=== PATIENT | male | born 1975 | race Caucasian/White ===

== ENCOUNTER 2022-12-14 07:34 | Day surgery (SDC) | payer MEDICAID ==
[~2022-12-14] VITALS: Ht 170.2 cm; Wt 95.5 kg
[2022-12-14] MEDS ORDERED: CETI10TA14 PO (07:51)
[2022-12-14] MEDS ORDERED: PREG150C46 PO (07:51)
[2022-12-14] MEDS ORDERED: CHOL500049 PO (07:51)
[2022-12-14] MEDS ORDERED: LIDO35.4 (07:51)
[2022-12-14] MEDS ORDERED: DOXE10CA3 PO (07:51)
[2022-12-14] MEDS ORDERED: TRAZ-251 PO (07:51)
[2022-12-14] MEDS ORDERED: PRED20TA PO (07:51)
[2022-12-14] MEDS ORDERED: ATOR20TA66 PO (07:52)
[2022-12-14] MEDS ORDERED: OXYC1TAB17 (08:06)
[2022-12-14] MEDS ORDERED: fentaNYL/PF 50MCG/1 ML 2ML syringe ONE (08:17)
[2022-12-14] MEDS ORDERED: MIDAZolam 1 MG/ML 5ML VIAL ONE (08:17)
[2022-12-14 08:48] VITALS: BP 129/77
[2022-12-14 09:16] VITALS: BP 115/73
[2022-12-14 09:26] VITALS: BP 117/70
[2022-12-14 09:36] VITALS: BP 120/70
== END 2022-12-14 10:00 | disposition home or self-care (01) ==
LOC: GI LAB 07:34
PROVIDERS: ATTEND Internal Medicine Gastroenterology
DX: R19.5 Other fecal abnormalities (principal); D12.5 Benign neoplasm of sigmoid colon; D12.8 Benign neoplasm of rectum; D12.3 Benign neoplasm of transverse colon; D12.4 Benign neoplasm of descending colon; K64.1 Second degree hemorrhoids; F17.210 Nicotine dependence, cigarettes, uncomplicated
CPT/HCPCS: 45385; 99152; 99153; C1889; J2250; J3010; J7030; Z7512; A4620